=== PATIENT | male | born 1965 | race Caucasian/White ===

== ENCOUNTER 2024-02-10 03:39 | Emergency (ER) | payer BC ==
[2024-02-10] MEDS ORDERED: LORazepam 2 MG/ML VIAL ONE (04:07)
[2024-02-10] MEDS ORDERED: NA CHLORIDE 0.9% 1,000 ML ONE (04:08)
[2024-02-10 04:48] LABS: Absolute Basophils 0.1 K/uL (0-0.5); Absolute Eosinophils 0.2 K/uL (0-0.5); Absolute Lymphocytes (CBC) 1.9 K/uL (0.7-4.9); Absolute Monocytes 0.7 K/uL (0.1-1.3); Absolute Neutrophil 1.7 K/uL (1.8-8.0); Basophils % 1.5 % (0-1.3); Eosinophils % 3.6 % (0-4.4); Hemoglobin 12.4 g/dL (13.6-17.9); MCH 17.6 pg (27.0-35.0); MCHC 29.6 g/dL (32.0-36.0); MCV 59.3 fL (80-100); MPV 8.6 fL (7.6-11.3); Monocytes % 15.6 % (3.3-12.3); Neutrophils % 38.3 % (41.7-73.7); Nucleated Red Blood Cells % 0.1 % (0-0); Platelets 159 thou/uL (152-406); RBC Red Blood Cell Count 7.08 M/uL (4.33-5.43)
[2024-02-10 04:57] LABS: ALT/SGPT 18 U/L (16-61); Albumin 3.7 g/dL (3.4-5.0); Albumin/Globulin Ratio 1.1 (1.1-1.8); Alkaline Phosphatase 80 U/L (45-117); Anion Gap 9.1 mEq/L (5.0-15.0); BUN Blood Urea Nitrogen 9 mg/dL (7-18); Bicarbonate 27 mEq/L (21-32); Bilirubin Direct 0.4 mg/dL (0-0.2); Bilirubin Indirect, Calculated 2.5 mg/dL (0.2-0.8); Bilirubin Total 2.9 mg/dL (0.2-1.0); Creatine Phosphokinase 112 U/L (39-308); Globulin 3.3 g/dL (2.3-3.5); Glomerular Filtration Rate 87 ml/min (=/>90); Glucose Level 97 mg/dL (74-106); Magnesium 2.3 mg/dL (1.6-2.4); Potassium 3.1 mEq/L (3.5-5.1); Sodium Level 140 mEq/L (136-145); Troponin High Sensitivity 10.9 pg/mL (<58.9)
[2024-02-10 05:06] LABS: AST/SGOT < 10 U/L (15-37)
[2024-02-10 05:36] LABS: Blood Morphology Comment NOTED (NOT SEEN); White Blood Cell Scan OK (OK)
[2024-02-10 05:37] LABS: Hypochromasia 1+; Microcytosis 2+; Ovalocytes 2+; Platelet Estimate ADEQ
--- NOTE | 2024-02-10 05:58 | ER ---
Nurse's Notes [facility] [place] Name: Cristino Reynoso Age: 58 yrs Sex: Male : 1965 Arrival Date: 02/10/2024 Time: 03:39 Bed 2 Private MD: Diagnosis: Panic attack Presentation: 02/09 03:57 Chief complaint: Patient states: c/o severe anxiety, shaking, difficulty al5 swallowing/breathing, and dry mouth since 2200 last night, denies taking anything. denies cp and sob. Coronavirus screen: At this time, the client does not indicate any symptoms associated with coronavirus-19. Ebola Screen: No symptoms or risks identified at this time. Initial Sepsis Screen: Does the patient meet any 2 criteria? RR > 20 per min. No. Patient's initial sepsis screen is negative. Does the patient have a suspected source of infection? No. Patient's initial sepsis screen is negative. Risk Assessment: Do you want to hurt yourself or someone else? Patient reports no desire to harm self or others. Onset of symptoms was February 10, 2024. 03:57 Method Of Arrival: Wheelchair al5 03:57 Acuity: MEGHA 2 al5 Triage Assessment: 04:02 General: Appears distressed, Behavior is anxious, restless. Pain: Denies pain. EENT: No al5 signs and/or symptoms were reported regarding the EENT system. Neuro: Level of Consciousness is awake, alert, obeys commands, Oriented to person, place, time, situation. Cardiovascular: Patient's skin is warm and dry. Respiratory: Airway is patent Respiratory effort is even, unlabored, Respiratory pattern is regular, symmetrical, tachypnea. Respiratory: Reports difficulty swallowing and breathing, shakiness. GI: No signs and/or symptoms were reported involving the gastrointestinal system. : No signs and/or symptoms were reported regarding the genitourinary system. Derm: Skin is intact, Skin is pink, warm \T\ dry. normal. Musculoskeletal: No signs and/or symptoms reported regarding the musculoskeletal system. Historical: - Allergies: 04:01 BEE STINGS; al5 04:01 PENICILLINS; al5 - PMHx: 04:01 None; al5 - PSHx: 04:01 back surgery; al5 - Immunization history:: Adult Immunizations up to date. - Infectious Disease History:: Denies. - Social history:: Smoking status: Patient/guardian denies using tobacco, but has a distant history of tobacco abuse. - Family history:: not pertinent. Screenin:04 [facility] ED Fall Risk Assessment (Adult) History of falling in the last 3 months, al5 including since admission No falls in past 3 months (0 pts) Confusion or Disorientation No (0 pts) Intoxicated or Sedated No (0 pts) Impaired Gait No (0 pts) Mobility Assist Device Used No (0 pt) Altered Elimination No (0 pt) Score/Fall Risk Level 0 - 2 = Low Risk Oriented to surroundings, Maintained a safe environment, Hourly rounding (assess needs \T\ fall precautionary measures) done. Abuse screen: Denies threats or abuse. Denies injuries from another. Nutritional screening: No deficits noted. Tuberculosis screening: No symptoms or risk factors identified. Assessment: 04:30 Reassessment: Patient appears in no apparent distress at this time. Patient and/or al5 family updated on plan of care and expected duration. Pain level reassessed. Patient is alert, oriented x 3, equal unlabored respirations, skin warm/dry/pink. Patient states feeling better. 05:21 Reassessment: Patient appears in no apparent distress at this time. No changes from al5 previously documented assessment. Patient and/or family updated on plan of care and expected duration. Pain level reassessed. Patient is alert, oriented x 3, equal unlabored respirations, skin warm/dry/pink. 06:00 Reassessment: Patient appears in no apparent distress at this time. No changes from al5 previously documented assessment. Patient and/or family updated on plan of care and expected duration. Pain level reassessed. Patient is alert, oriented x 3, equal unlabored respirations, skin warm/dry/pink. Vital Signs: 03:57 BP 161 / 97; Pulse 66; Resp 27; Temp 98.4; Pulse Ox 100% on R/A; Weight 90.72 kg; al5 Height 5 ft. 11 in. ; Pain 0/10; 04:00 BP 143 / 79; Pulse 55; Resp 18; Pulse Ox 100% on R/A; al5 04:30 BP 132 / 82; Pulse 52; Resp 17; Pulse Ox 96% on R/A; al5 05:00 BP 132 / 77; Pulse 49; Resp 18; Pulse Ox 96% on R/A; al5 05:30 BP 127 / 79; Pulse 48; Resp 17; Pulse Ox 97% ; al5 06:00 BP 135 / 82; Pulse 47; Resp 18; Pulse Ox 96% on R/A; al5 03:57 Body Mass Index 27.89 (90.72 kg, 180.34 cm) al5 03:57 Pain Scale: Adult al5 ED Course: 03:40 Patient arrived in ED. vc1 03:46 Zay Hernandez MD is Attending Physician. rt 03:57 Nu Vital RN is Primary Nurse. al5 03:59 Triage completed. al5 04:03 Arm band placed on right wrist. al5 04:03 Patient has correct armband on for positive identification. Placed in gown. Bed in low al5 position. Call light in reach. Side rails up X2. Provided Education on: processes and procedures. 04:03 No provider procedures requiring assistance completed. Inserted saline lock: 18 gauge al5 in right forearm, using aseptic technique. 04:21 XRAY Chest (1 view) In Process Unspecified. EDMS 06:32 IV discontinued, intact, bleeding controlled, No redness/swelling at site. Pressure al5 dressing applied. Administered Medications: 04:16 Drug: Ativan IVP 2 mg IVP once Route: IVP; Site: right forearm; al5 05:09 Follow up: Response: No adverse reaction; Anxiety decreased al5 04:17 Drug: NS 0.9% IV 1000 ml IV at 1 bolus Per protocol; 1000 mL bolus Route: IV; Rate: 1 al5 bolus; Site: right forearm; 05:09 Follow up: Response: No adverse reaction; IV Status: Completed infusion; IV Intake: al5 1000ml Medication: 04:04 VIS not applicable for this client. al5 Intake: 05:09 IV: 1000ml; Total: 1000ml. al5 Outcome: 05:58 Discharge ordered by . rt 06:32 Discharged to home ambulatory, with significant other, al5 06:32 Condition: good 06:32 Discharge instructions given to patient, Instructed on discharge instructions, follow up and referral plans. Demonstrated understanding of instructions, follow-up care, 06:33 Patient left the ED. al5 Signatures: Dispatcher [facility] EDMS Celi Montano RN RN vc1 Zay Hernandez MD MD rt Nu Vital RN RN al5 Corrections: (The following items were deleted from the chart) 04:02 04:01 PSHx: None; al5 al5 05:21 05:21 Reassessment: see triage assessment al5 al5 05:22 03:57 Reassessment: see triage assessment al5 al5
--- NOTE | 2024-02-10 05:59 | EDPHYS ---
Physician Documentation [facility] [place] Name: Cristino Reynoso Age: 58 yrs Sex: Male : 1965 Arrival Date: 02/10/2024 Time: 03:39 Bed 2 Private MD: ED Physician Zay Hernandez HPI: 02/09 04:19 This 58 yrs old Male presents to ER via Wheelchair with complaints of Doesn't Feel rt Right. 04:19 Patient presents to the ED with complaints of anxiety, difficulty breathing, difficulty rt swallowing. This occurred all of a sudden tonight. Denies recent illnesses, previous similar complaints. Denies other acute complaints at this time, symptoms are moderate in severity, no other aggravating leaving factors.. Historical: - Allergies: 04:01 BEE STINGS; al5 04:01 PENICILLINS; al5 - PMHx: 04:01 None; al5 - PSHx: 04:01 back surgery; al5 - Immunization history:: Adult Immunizations up to date. - Infectious Disease History:: Denies. - Social history:: Smoking status: Patient/guardian denies using tobacco, but has a distant history of tobacco abuse. - Family history:: not pertinent. ROS: 04:19 Constitutional: Negative for fever, chills, and weight loss, Cardiovascular: Negative rt for chest pain, palpitations, and edema, Abdomen/GI: Negative for abdominal pain, nausea, vomiting, diarrhea, and constipation, MS/Extremity: Negative for injury and deformity, Skin: Negative for injury, rash, and discoloration, 04:19 Respiratory: Positive for shortness of breath, Negative for cough, 04:19 Psych: Positive for anxiety, Negative for suicidal ideation, Exam: 04:19 Constitutional: This is a well developed, well nourished patient who is awake, alert, rt and in no acute distress. Head/Face: Normocephalic, atraumatic. Chest/axilla: Normal chest wall appearance and motion. Nontender with no deformity. No lesions are appreciated. Cardiovascular: Regular rate and rhythm with a normal S1 and S2. No gallops, murmurs, or rubs. Normal PMI, no JVD. No pulse deficits. Respiratory: Lungs have equal breath sounds bilaterally, clear to auscultation and percussion. No rales, rhonchi or wheezes noted. No increased work of breathing, no retractions or nasal flaring. Abdomen/GI: Soft, non-tender, with normal bowel sounds. No distension or tympany. No guarding or rebound. No evidence of tenderness throughout. Skin: Warm, dry with normal turgor. Normal color with no rashes, no lesions, and no evidence of cellulitis. MS/ Extremity: Pulses equal, no cyanosis. Neurovascular intact. Full, normal range of motion. Neuro: Awake and alert, GCS 15, oriented to person, place, time, and situation. Cranial nerves II-XII grossly intact. Motor strength 5/5 in all extremities. Sensory grossly intact. Cerebellar exam normal. Normal gait. 04:19 ECG was reviewed by the Attending Physician. Vital Signs: 03:57 BP 161 / 97; Pulse 66; Resp 27; Temp 98.4; Pulse Ox 100% on R/A; Weight 90.72 kg; al5 Height 5 ft. 11 in. ; Pain 0/10; 04:00 BP 143 / 79; Pulse 55; Resp 18; Pulse Ox 100% on R/A; al5 04:30 BP 132 / 82; Pulse 52; Resp 17; Pulse Ox 96% on R/A; al5 05:00 BP 132 / 77; Pulse 49; Resp 18; Pulse Ox 96% on R/A; al5 05:30 BP 127 / 79; Pulse 48; Resp 17; Pulse Ox 97% ; al5 06:00 BP 135 / 82; Pulse 47; Resp 18; Pulse Ox 96% on R/A; al5 03:57 Body Mass Index 27.89 (90.72 kg, 180.34 cm) al5 03:57 Pain Scale: Adult al5 MDM: 03:58 Patient medically screened. rt 05:59 Differential Diagnosis Panic attack, dysrhythmia, ACS, pneumonia. Data reviewed: vital rt signs, nurses notes, lab test result(s), EKG, radiologic studies. Consideration of Admission/Observation Escalation of care including admission/observation considered. I considered the following discharge prescriptions or medication management in the emergency department Medications were administered in the Emergency Department. See MAR. Independent interpretation of the following test(s) in the Emergency Department X-Ray: My interpretation is No infiltrate seen on my interpretation of x-ray images. Test considered but Not performed: CT: Low suspicion for pulmonary embolus, CT angiogram not indicated. Counseling: I had a detailed discussion with the patient and/or guardian regarding the historical points, exam findings, and any diagnostic results supporting the discharge/admit diagnosis, lab results, radiology results, the need for outpatient follow up, to return to the emergency department if symptoms worsen or persist or if there are any questions or concerns that arise at home. Response to treatment: the patient's symptoms have resolved after treatment. 02/09 04:04 Order name: Basic Metabolic Panel; Complete Time: 05:42 rt 02/09 04:04 Order name: CBC with Diff; Complete Time: 05:42 rt 02/09 04:04 Order name: LFT's; Complete Time: 05:42 rt 02/09 04:04 Order name: Magnesium; Complete Time: 05:42 rt 02/09 04:04 Order name: Troponin HS; Complete Time: 05:42 rt 02/09 04:04 Order name: CPK; Complete Time: 05:42 rt 02/09 04:04 Order name: ETOH Level; Complete Time: 05:42 rt 02/09 04:04 Order name: TSH; Complete Time: 05:42 rt 02/09 04:52 Order name: CBC Smear Scan; Complete Time: 05:42 EDMS 02/09 04:04 Order name: XRAY Chest (1 view) rt 02/09 04:04 Order name: EKG; Complete Time: 04:05 rt 02/09 04:04 Order name: Cardiac monitoring; Complete Time: 04:05 rt 02/09 04:04 Order name: EKG - Nurse/Tech; Complete Time: 04:05 rt 02/09 04:04 Order name: IV Saline Lock; Complete Time: 04:05 rt 02/09 04:04 Order name: Labs collected and sent; Complete Time: 04:05 rt 02/09 04:04 Order name: O2 Per Protocol; Complete Time: 04:05 rt 02/09 04:04 Order name: O2 Sat Monitoring; Complete Time: 04:05 rt EC:19 Rate is 60 beats/min. Rhythm is regular, Normal Sinus Rhythm with No ectopy. QRS Valders rt is Normal. WA interval is normal. QRS interval is normal. QT interval is normal. No Q waves. T waves are Normal. No ST changes noted. Administered Medications: 04:16 Drug: Ativan IVP 2 mg IVP once Route: IVP; Site: right forearm; al5 05:09 Follow up: Response: No adverse reaction; Anxiety decreased al5 04:17 Drug: NS 0.9% IV 1000 ml IV at 1 bolus Per protocol; 1000 mL bolus Route: IV; Rate: 1 al5 bolus; Site: right forearm; 05:09 Follow up: Response: No adverse reaction; IV Status: Completed infusion; IV Intake: al5 1000ml Disposition Summary: 02/10/24 05:58 Discharge Ordered Notes: Location: Home rt Problem: new rt Symptoms: are resolved rt Condition: Stable rt Diagnosis - Panic attack rt Followup: rt - With: Private Physician - When: 2 - 3 days - Reason: Discharge Instructions: - Discharge Summary Sheet rt - Panic Attack rt Forms: - Medication Reconciliation Form rt - Antibiotic Education rt - Prescription Opioid Use rt - Patient Portal Instructions rt - Leadership Thank You Letter rt Signatures: Dispatcher [employer] EDZay Hayward MD MD rt Nu Vital RN RN al5 Corrections: (The following items were deleted from the chart) 04:02 04:01 PSHx: None; al5 al5
[2024-02-10 06:48] VITALS: TEMP 98.4
[2024-02-10 07:02] VITALS: BP 135/82; O2SAT 96
--- NOTE | 2024-02-10 09:58 | EKG ---
Test Date: 2024-02-10 Test Time: 03:42:17 [employer]: RV MEASUREMENT RESULTS: Intervals: Rate: 60 SC: 124 QRSD: 100 QT: 420 QTc: 420 [place]: P: 62 SC: 124 QRS: 10 T: 27 INTERPRETIVE STATEMENTS: Normal sinus rhythm Normal ECG Compared to ECG 12/17/2018 14:02:05 Sinus arrhythmia no longer present Short SC interval no longer present Incomplete right bundle-branch block no longer present Electronically Signed On 02-10-24 09:58:02 CDT by Monty Steen
--- NOTE | 2024-02-12 08:21 | RAD REPORT ---
EXAM DESCRIPTION: RAD - Chest Single View - 02/10/2024 4:19 am CLINICAL HISTORY: Male, 58 years old, DYSPNEA TECHNIQUE: 1 view COMPARISON: None. FINDINGS: SUPPORT DEVICES: Overlying leads. LUNGS/PLEURA: Perihilar interstitial prominence. No consolidation, pleural effusion or pneumothorax. HEART/MEDIASTINUM: Normal size and configuration. OTHER: No acute osseous findings. IMPRESSION: Interstitial markings suggestive of edema or pneumonitis/bronchitis. No consolidation. Electronically signed by: Smith See MD 02/10/2024 04:38 AM CDT RP Due to temporary technical issues with the PACS/Fluency reporting system, reports are being signed by the in house radiologist without review as a courtesy to ensure prompt reporting. The interpreting r adiologist is fully responsible for the content of the report.
== END 2024-02-10 06:33 | disposition home or self-care (01) ==
LOC: ER 03:39
DX: F41.0 Panic disorder [episodic paroxysmal anxiety] (principal); F41.9 Anxiety disorder, unspecified
CPT/HCPCS: 93005; 85025; 80048; 36415; 83735; 82550; 80076; 84443; 84484; 71045; 82077; J7030; 96361; 96374; 99284